=== PATIENT | male | born 1960 | race Caucasian/White ===

== ENCOUNTER 2016-08-27 23:41 | Inpatient (IN) | payer MEDICARE ==
[~2016-08-27] VITALS: Ht 170.2 cm; Wt 57.2 kg
--- NOTE | 2016-08-27 23:41 | NUR ---
TO BED 6 BIB PARAMEDICS C/O SOB, RHONCHI HEARD BILATERALLY ON AUSCULTATION. PT AAOX4. SKIN COOL, DIAPHORETIC. PLACE PT ON CARDIAC MONITORING, CONTINUOUS POX, O2@15L/NONREBREATHER MASK. STARTED SL 18G TO L WRIST, BLOOD DRAWN AND SENT TO LAB. ER MD AT BEDSIDE TO EVAL PT WITH ORDERS RECEIVED. RT AT BEDSIDE.
[2016-08-28] VITALS (8 sets, daily range): BP systolic 92–131; BP diastolic 47–81
[2016-08-28 00:11] LABS: BASOPHILS % (AUTO) 0.3 % (0.0-2.0); EOSINOPHILS # (AUTO) 0.5 /CMM (0.0-0.7); EOSINOPHILS % (AUTO) 7.2 % (0.0-6.0); HEMATOCRIT 25 % (39-51); HEMOGLOBIN 8.4 g/dL (13.5-17.5); LYMPHOCYTES % (AUTO) 14.1 % (20.0-44.0); MEAN CORPUSCULAR HEMOGLOBIN 32 PG (26.0-33.0); MEAN CORPUSCULAR HGB CONC 33 g/dl (31.0-36.0); MEAN CORPUSCULAR VOLUME 95 fL (80-96); MONOCYTES # (AUTO) 0.2 /CMM (0.1-1.30); MONOCYTES % (AUTO) 2.9 % (2.0-12.0); NEUTROPHILS # (AUTO) 5.5 /CMM (1.8-8.9); NEUTROPHILS % (AUTO) 75.5 % (43.0-81.0); PLATELET COUNT (AUTO) 290 /CMM (150-450); RED BLOOD CELL COUNT(AUTO) 2.67 MIL/uL (4.5-6.0); WHITE BLOOD COUNT (AUTO) 7.3 K/uL (4.3-11.0)
[2016-08-28 00:21] LABS: CARBON DIOXIDE 35 mmol/L (21-32); CHLORIDE 94 mmol/L (98-107); CREATININE 1.8 mg/dL (0.6-1.3); GLUCOSE 163 mg/dL (74-106); POTASSIUM 3.6 mmol/L (3.5-5.1); SODIUM SERUM 133 mmol/L (136-145); UREA NITROGEN, BLOOD 22 mg/dL (7-18)
[2016-08-28 00:24] LABS: ABG BASE EXCESS 6.9 mmol/L; ABG OXYGEN SATURATION 91.3 % (92.0-98.5); ABG PCO2 55.1 mmHg (35.0-45.0); ABG PH 7.393 (7.350-7.450); ABG PO2 62.8 mmHg (75.0-100.0); AaDO2 449.8 mmHg; COHb 2.5 % (0.5-1.5); MetHb 0.2 % (0.0-1.5); O2Hb 88.8 % (94.0-97.0); SITE, ABG Right Radial; VENT MODE, BG N/B
[2016-08-28 00:25] LABS: INR 1.23 (0.87-1.13); PROTHROMBIN TIME 13.3 SECS (9.5-12.7)
[2016-08-28 00:29] LABS: TROPONIN I < 0.017 ng/mL (0.00-0.056)
[2016-08-28 00:34] LABS: ALANINE AMINOTRANSFERASE 86 U/L (12-78); ALKALINE PHOSPHATASE 339 U/L (46-116); ASPARTATE AMINOTRANSFERASE 110 U/L (15-37); B-TYPE NATRIURETIC PEPTIDE 20409 PG/ML (0-125); BILIRUBIN,DIRECT 0.5 mg/dL (0.0-0.2); BILIRUBIN,TOTAL 1.1 mg/dL (0.2-1.0); TOTAL PROTEIN, SERUM 6.5 g/dL (6.4-8.2)
--- NOTE | 2016-08-28 00:53 | NUR ---
PLACE PT ON SIMPLE MASK 6L PER ER MD ORDER.
--- NOTE | 2016-08-28 01:21 | NUR ---
PANEL PAGED PER ER MD ORDER.
--- NOTE | 2016-08-28 01:33 | NUR ---
REPORT CALLED TO MACHINE HEEL SEAT FITTER JEM. PENDING HOSPITAL ADMISSION.
--- NOTE | 2016-08-28 01:52 | NUR ---
ER SPOKE TO DR. GONZALEZ REGARDING PT ADMISSION.
[2016-08-28] MEDS ORDERED: IV SET PRIMARY PUMP SET 1 EA INFUS.SET MC ONE (02:04)
[2016-08-28] MEDS ORDERED: AZTREONAM 1 G VIAL ONE (02:04)
[2016-08-28] MEDS: AZTREONAM 1 G in IV NS 0.9% 100 ML IV SCH ×2 (02:10→05:00)
[2016-08-28] MEDS: LEVOFLOXACIN 750 MG /D5W 150ML 750 MG in PREMIX 1 EA IV SCH ×2 (02:26→05:08)
--- NOTE | 2016-08-28 02:27 | NUR ---
REPORT UPDATED TO HOOP COILER JEM. LEVAQUIN 750MG IVPB ENDORSED TO HOOP COILER JEM. WILL TRNASPORT PT VIA ACLS PROTOCOL.
--- NOTE | 2016-08-28 02:40 | NUR ---
ADMISSION NOTES: RECEIVED REPORT FROM ED MAINTENANCE WORKER SWIMMING POOL, PT FROM [facility] BROUGHT TO THE UNIT VIA GURNEY, NO PAPER WORKS FROM [place] ASIDE FROM POLST AND PAY SHEET. PT IS PORTUGUESE SPEAKING A/O 2-3, HAS RIGHT CW JAMSHID CATHETER, RIGHT GROIN TRIPLE LUMEN CATHETER, RIGHT CHEST WALL PLEUREX DRAINAGE CATHETER COVERED WITH DRESSING. NO LEAKAGE NOTED. PT HAS LEFT WRIST IV G18 RUNNING WITH AZACTAM AT 100ML/HR, NOTED LEFT AKA. FAMILY AT BED SIDE, PT REQUESTING DNR, DNI, CHECKED BLOOD SUGAR REVEAL 177, PT REFUSING INSULIN COVERAGE, PT HAS GTUBE IN PLACED, ABDOMEN SOFT TO TOUCH WITH HYPOACTIVE BOWEL SOUND NOTED, GTUBE PATENT AND FLUSHING WELL, COVERED WITH 4X4 GAUZE. PLACED ON TELE MONITOR AND SHOWS SINUS RHYTHM HR 91. SAFETY PRECAUTIONS FOR FALL INITIATED CALL LIGHT IN REACH, WILL CONTINUE TO MONITOR
[2016-08-28] MEDS ORDERED: MAGNESIUM HYDROXIDE 30 ML UDC PO PRN (03:00)
[2016-08-28] MEDS ORDERED: ZOLPIDEM TARTRATE 5 MG TABLET PO PRN (03:00)
[2016-08-28] MEDS ORDERED: Z GUARD REMEDY 2 OZ OINT TP PRN (03:00)
[2016-08-28] MEDS ORDERED: MAG HYDROX/AL HYDROX/SIMETH 30 ML UDC PO PRN (03:00)
--- NOTE | 2016-08-28 03:00 | NUR ---
SKIN ASSESSMENT: PERFORMED BODY CHECK, ALL PICTURES TAKEN ATTACHED TO CHART, INVENTORY OF BELONGINGS COMPLETED BY GROUNDWATER MONITORING TECHNICIAN MARINA
--- NOTE | 2016-08-28 03:30 | NUR ---
RN NOTES: PT HAS RIGHT CHEST WALL PLEUREX DRAINAGE CATHETER WITH DRESSING IN PLACED, PER ESTATE TAX EXAMINER TASHA DO NOT OPEN THE DRESSING, WILL ASK FOR CLEARANCE FROM MD TO OPEN IT THEN TAKE PICTURE, POSSIBLE PULMO CONSULT FIRST, EVEN INFORMATION OFFICER ED NOT AWARE ABOUT PT HAVING PLEUREX CATHETER
--- NOTE | 2016-08-28 03:31 | NUR ---
RN NOTES: PER FAMILY, PT HAD DIALYSIS LAST TUESDAY BUT NOT SURE ABOUT HOW MUCH WERE REMOVED,
[2016-08-28] MEDS ORDERED: LEVOFLOXACIN 750 MG /D5W 150ML 150 ML IV ONE (04:02)
--- NOTE | 2016-08-28 04:02 | NUR ---
rn notes: contacted valentino ruano at [phone] talked to aleksander supervisor lace tearing at night of jim [facility], relayed about paperworks from facility, as pt javier to the unit only with polst and admission/pay sheet. per gregory armijo he will faxed all the medication of the pt and immunization status, also asked per aleksander, pt has pleurex catheter drain which was drained yesterday at 1530 08/27/16 with 750 cc out, he added that dr thakkar order to drain it on 08/1616 then every 2weeks
[2016-08-28] MEDS ORDERED: ALBU1.257 NEB (05:04)
[2016-08-28] MEDS ORDERED: EPOE1VIA7 SQ (05:04)
[2016-08-28] MEDS ORDERED: [UNRECOGNIZED DRUG - CODE] MC (05:04)
[2016-08-28] MEDS ORDERED: LEVO25TA7 GT (05:04)
[2016-08-28] MEDS ORDERED: ACET-73 GT (05:04)
[2016-08-28] MEDS ORDERED: ERYTHROMYCIN GT (05:04)
[2016-08-28] MEDS ORDERED: [UNRECOGNIZED DRUG - MIXTURE] (05:04)
[2016-08-28] MEDS ORDERED: CLON0.1T GT (05:04)
[2016-08-28] MEDS ORDERED: LOPE2TAB57 GT (05:04)
[2016-08-28] MEDS ORDERED: LORA10TA7 GT (05:04)
[2016-08-28] MEDS ORDERED: NITR0.4T6 SL (05:04)
[2016-08-28] MEDS ORDERED: ASCO250T7 GT (05:04)
[2016-08-28] MEDS ORDERED: APIX2.5T GT (05:04)
[2016-08-28] MEDS ORDERED: VIT1TABL46 GT (05:04)
[2016-08-28] MEDS ORDERED: TRAM50TA2 GT (05:04)
[2016-08-28] MEDS ORDERED: PANT40TA4 GT (05:04)
[2016-08-28] MEDS ORDERED: *INS NOVA SQ (05:04)
[2016-08-28] MEDS ORDERED: FERR-58 GT (05:04)
[2016-08-28] MEDS ORDERED: METO-295 GT (05:04)
[2016-08-28] MEDS ORDERED: PROT946L GT (05:04)
[2016-08-28] MEDS ORDERED: IPRATROPIUM BROMIDE INH (05:04)
--- NOTE | 2016-08-28 05:11 | NUR ---
levaquin: levaquin override by rn gregory griffith, levofloxacin administered at this time, unable to hang the medication earlier at 0200am as pt came to the unit at 0245am, with ongoing azactam at 100ml/hr, upon completion of azactam, erisa attorney from er put non admin for levaquin, had to call the said rn couple of times to remove the non admin so rn at [facility] can administer the said medication,
--- NOTE | 2016-08-28 05:12 | NUR ---
azactam: azactam not administered at this time, there is one schedule for 0520am however azactam just administered at 0200am in er, order is for q8hr
--- NOTE | 2016-08-28 05:16 | NUR ---
MEDICATION LIST: ALL MEDICATION FAXED BY MATTHEW, ENCODED IN THE COMPUTER, WILL INFORM MD COURT ORDERLY
--- NOTE | 2016-08-28 05:20 | NUR ---
RN NOTES: TALKED TO DR GONZALEZ REGARDING PT'S DIET INFORMED PT HAS GTUBE, PER OKAY TO USE GTUBE, ALSO INFORMED ABOUT ALL HOME MEDICATION ENCODED IN THE COMPUTER, ALSO MADE MD AWARE REGARDING PT'S PLUEREX CATHETER DRAINAGE, AND THAT PT DIABETIC IF HE WANTS ANY ACCUCHECK AND COVERAGE, STATED OKAY HE WILL TAKE A LOOK AND PUT IN ORDERS, ALSO MD INFORMED ABOUT PT'S POLST WITH DNR DNI PT WANTS TO KEEP IT THAT WAY, PER OKAY, JUST PUT THE ORDER, RELAYED TO TROUBLE SHOOTERINRANJAN CORDOVA
--- NOTE | 2016-08-28 05:25 | NUR ---
RN NOTES: PER MD BAILEY TO USE GTUBE FOR MEDICATIONS, WILL HAVE DIETARY CONSULT REGARDING TUBE FEEDING OF THE PT
[2016-08-28] MEDS ORDERED: DEXTROSE 50%-WATER 50 ML DISP.SYRIN IV PRN ×2 (05:30→13:00)
[2016-08-28] MEDS ORDERED: INSULIN REGULAR, HUMAN 100 UNIT/ML 3 ML VIAL SQ PRN (05:30)
[2016-08-28] MEDS ORDERED: BLOOD SUGAR DIAGNOSTIC 1 EACH STRIP IN SCH (06:00)
--- NOTE | 2016-08-28 06:17 | NUR ---
BLOOD SUGAR PT BLOOD GLUCOSE WAS 181, PT REFUSED INSULIN. WILL CONTINUE TO MONITOR FOR SIGNS OF HYPO/HYPER GLYCEMIA
--- NOTE | 2016-08-28 06:50 | NUR ---
DOCKETING SPECIALIST CLOSING NOTES: PT IN BED, AWAKE, A/O X2, NO SOB NOTED, GTUBE REMAINS CLAMPED, REMAINS SINUS RHYTHM HR 90, AWAITING DIETARY CONSULT FOR GTUBE FEEDING, SAFETY PRECAUTIONS FOR FALL REMAINS ENGAGED CALL LIGHT IN REACH WILL CONTINUE TO MONITOR
--- NOTE | 2016-08-28 07:30 | NUR ---
RECEIVED PT. ALERT AND ORIENTED X2-3,ESTONIAN SPEAKING,ON O2,SIDE RAILS UP.VS STABLE.NO COMPLAINTS.G-TUBE IN PLACE NEED ORDERS.
[2016-08-28] MEDS ORDERED: CLONIDINE HCL 0.1 MG TABLET GT PRN (08:00)
[2016-08-28] MEDS ORDERED: EPOETIN ALFA (10,000 UNIT) 10,000 UNIT/ML VIAL IJ SCH (08:00)
--- NOTE | 2016-08-28 08:00 | NUR ---
RT. CHEST PLEUREX CATH INTACT,COVERED BY DRESSING.
[2016-08-28] MEDS: HYDROCODONE/APAP 5/325MG 1 EACH TABLET PO PRN ×3 (08:28→23:48)
[2016-08-28] MEDS: PANTOPRAZOLE 40 MG TABLET.DR PO SCH ×2 (08:30→10:27)
[2016-08-28] MEDS ORDERED: PANTOPRAZOLE 40 MG TABLET.DR PO SCH (09:00)
[2016-08-28] MEDS ORDERED: LOPERAMIDE HCL UDC(2 MG/10 ML) 2 MG/10 ML UDC GT PRN (10:00)
[2016-08-28] MEDS ORDERED: ASCORBIC ACID 250 MG TABLET PO SCH (10:00)
[2016-08-28] MEDS ORDERED: RENAL NOVASOURCE 1,000 ML BOTTLE GT SCH ×2 (10:00→12:26)
[2016-08-28] MEDS: ASCORBIC ACID 500 MG TABLET PO SCH (10:27)
[2016-08-28] MEDS: FUROSEMIDE 40 MG/4 ML VIAL IV SCH ×2 (10:27→17:32)
[2016-08-28] MEDS: FERROUS SULFATE (325 MG) 325 MG/TAB TABLET GT SCH ×2 (10:28→17:32)
[2016-08-28] MEDS: LEVOTHYROXINE SODIUM 25 MCG TABLET GT SCH (10:29)
[2016-08-28] MEDS: LORATADINE 10 MG TABLET PO SCH (10:31)
--- NOTE | 2016-08-28 11:30 | NUR ---
DR. FERRELL AND DR. WINSTON IN TO SEE PT.
[2016-08-28] MEDS ORDERED: BLOOD SUGAR DIAGNOSTIC 1 EACH STRIP MC SCH (12:00)
--- NOTE | 2016-08-28 12:30 | NUR ---
FAMILY IN TO VISIT.
[2016-08-28] MEDS ORDERED: AMLO5TAB2 GT (12:32)
[2016-08-28] MEDS ORDERED: ERYT-113 GT (12:32)
[2016-08-28] MEDS ORDERED: IPRA0.2S9 IH (12:32)
[2016-08-28] MEDS ORDERED: NUTR100037 GT (12:32)
[2016-08-28] MEDS ORDERED: METOCLOPRAMIDE HCL 10 MG TABLET GT PRN (13:00)
--- NOTE | 2016-08-28 13:00 | NUR ---
PT. REQUESTED ICE CHIPS-WITH OK OF CHRG.RN GIVEN SM SIPS OF WATER WITH FEW ICE CHIPS.
[2016-08-28] MEDS: IPRATROPIUM NEB FS 0.5 MG/2.5 ML AMPUL.NEB NEB SCH ×2 (13:10→19:30)
[2016-08-28] MEDS: ALBUTEROL HALF STRENGTH 1.25 MG/3 ML VIAL.NEB NEB SCH ×2 (13:10→19:30)
--- NOTE | 2016-08-28 13:15 | NUR ---
PT. RECEIVING TSP OF WATER AT A TIME.NO COUGHING NOTED.
[2016-08-28] MEDS ORDERED: IPRATROPIUM NEB FS 0.5 MG/2.5 ML AMPUL.NEB NEB PRN (13:30)
[2016-08-28] MEDS ORDERED: EPOETIN ALFA (10,000 UNIT) 10,000 UNIT/ML VIAL IV ONE (14:00)
--- NOTE | 2016-08-28 14:30 | NUR ---
REQUESTING WATER OFTEN-RN IN TO RM. EDGE.FOUND PT. WITH CUP OF WATER.APPARENTLY GIVEN TO HIM BY ROOMATE SM.CUP WATER PLACED FAR AWAY FROM PT.
[2016-08-28] MEDS: ERYTHROMYCIN ETHYLSUCCINATE 200 MG/5 ML SUSPENSION GT SCH ×3 (16:08→21:49)
[2016-08-28] MEDS: APIXABAN 2.5 MG TABLET GT SCH ×2 (16:09→17:00)
[2016-08-28] MEDS: HYDROGEL DRESSING 90 GM TUBE TP SCH (16:10)
--- NOTE | 2016-08-28 16:30 | NUR ---
DIALYSIS TODAY 1.2 L REMOVED.
[2016-08-28] MEDS ORDERED: PROSOURCE / PROSTAT (PYXIS) 30 ML UDC PO PRN (17:00)
[2016-08-28] MEDS: BLOOD SUGAR DIAGNOSTIC 1 EACH STRIP IN SCH (17:30)
--- NOTE | 2016-08-28 18:00 | NUR ---
TOLERATING WATER TOTAL THIS SHIFT.150 ML.G-TUBE INFUSING WELL.
--- NOTE | 2016-08-28 19:35 | NUR ---
RN INITIAL NOTES: RECEIVED REPORT FROM SHAREE Andrade PT IN BED AWAKE, A/O 2 ROMANSH SPEAKING , ASKING FOR WATER, BUT PT ON NPO ONLY GTUBE FEEDING, RECEIVING NOVASOURCE AT 40CC/HR. PT ON 2L VIA NC, NO SOB NOTED AT THIS TIME. PT S/P HD TODAY WITH 1.2 L OUTPUT, HAS RIGHT CW JAMSHID CATHETER, DRESSING C/D/I, PT HAS RIGHT GROIN TRIPLE LUMEN CATHETER IN PLACED WHICH ACCORDING TO DAY RN WAS FIXED BY MARINA ARCHULETA PICC LINE THIS AFTERNOON, AND NOW FUNCTIONAL AND OKAY TO USE PER MD, SHE STATED SHE WILL PUT AN ORDER SHE WAS THE ONE WHO COMMUNICATE WITH THE DOCTOR ABOUT IT. PT ALSO HAVE RIGHT CW PLEURX DRAIN CATHETER, WITH DRESSING C/D/I, COVERED WITH TEGADERM. ORDER IS TO DRAIN Q48HR WHICH IS DUE ON 08/29/16 AT 0900AM PER DAY RN, STATED IT WAS ACCDG TO DR DEL REAL. PT S/P PLEURX DRAIN ON 08/27/16 AT [place] [facility] WITH 750 CC OUTPUT. SAFETY PRECAUTIONS FOR FALL INITIATED CALL LIGHT IN REACH WILL CONTINUE TO MONITOR
--- NOTE | 2016-08-28 19:45 | NUR ---
NET C DEVELOPER: 1944-- FOUND PT PALE LOOKING, SHORT OF BREATH, AWAKE, BUT NOT RESPONDING WHEN ASK QUESTIONS OR INFLICT LOCAL PAIN, PT WITH PULSE, VS TAKEN AND RECORDED, 92/47 RR 16 SPO2 57% ON 2L VIA NC, 98.2, INFORMED DRAIN CLEANER PLUMBERNIRANJAN CORDOVA, NET C DEVELOPER WAS CALLED, PLACED PT ON MONITOR 1946-- CHECKED BLOOD SUGAR REVEALS 156, PLACED PT ON 6L STILL SHOWING 67% SATURATION, NET C DEVELOPER TEAM CAME, TELEPHONE STATION REPAIRER YISSEL AND RESPIRATORY THERAPIST, ANDREA , PLACED PT ON 15L/MIN NON REBREATHER MASK, SAT WENT TO 90%, GIVE REPORT/SBAR TO TELEPHONE STATION REPAIRER AND REST OF TEAM REGARDING PT'S CONDITION AND HISTORY, AND MADE AWARE PT DNR/DNI 1949--RN ARIANE THOMAS CAME, REST OF RT INCLUDING ARLENE, DID STAT ABG, PER TELEPHONE STATION REPAIRER YISSEL TO WAIT FOR THE RESULT BEFORE CALLING DR DEL REAL, VS 99/60, HR 111, 99% ON NON REBREATHER MASK, RR 20 98.2, PT AWAKE NOW, A/O X2 UZBEK ONLY 1999-- RESULT OF ABG CAME BACK , WHICH SHOWS ABNORMAL RESULT, PER TELEPHONE STATION REPAIRER YISSEL PT WOULD NEED BIPAP AND TRANSFER TO [facility], CALLED DR DEL REAL BUT NOT ANSWERING THE CALL, INFORMED DRAIN CLEANER PLUMBER LUANA, CONTACTED DR GONZALEZ RELAYED ABOUT PT'S CONDITION AND RESULT OF ABG'S, PER MD TO TRANSFER PT TO [facility] PLACED ON BIPAP DO STAT CXR AND CALL HIM FOR THE RESULT, VS TAKEN 90/51 HR 112 RR 19, SPO2 98% 2004-- CXR TECH CAME TO DO CXR 2005-- GIVEN REPORT TO VIOLETA CAMPOS RN, PT WILL BE GOING TO ROOM 113-2029-- TRANSFERRED PT TO [facility] VIA ACLS PROTOCOL, 2047--CONTACTED FAMILY OF THE PT, MAGNOLIA PT'S DAUGHTER MADE AWARE OF THE NEED FOR TRANSFER,
[2016-08-28 20:03] LABS: ABG BASE EXCESS 3.7 mmol/L; ABG OXYGEN SATURATION 91.3 % (92.0-98.5); ABG PCO2 69.3 mmHg (35.0-45.0); ABG PH 7.274 (7.350-7.450); ABG PO2 71.1 mmHg (75.0-100.0); COHb 3.2 % (0.5-1.5); MetHb 0.9 % (0.0-1.5); O2Hb 87.6 % (94.0-97.0); SITE, ABG Right Brachial; VENT MODE, BG N/B
--- NOTE | 2016-08-28 20:28 | NUR ---
TREATMENT NOT GIVEN TO THE PT BECAUSE OF PT FALL IN RAPID RESPOND AND THEN HE TRANSFERRED TO [facility] 113
--- NOTE | 2016-08-28 20:34 | NUR ---
STRUCTURAL SHOP HELPER NOTES RECEIVE REPORT FROM BLAINE. WAITING FOR PT
--- NOTE | 2016-08-28 20:40 | NUR ---
TRANSFER NOTES: TRANSFERRED PT TO [facility] VIA ACLS PROTOCOL AT 2030, RN VIOLETA AND EXECUTIVE LEGAL SECRETARY AIDEN PRESENT, FAMILY FRIEND AT BED SIDE, PT A/O X2, GTUBE FEEDING CLAMPED, VS STABLE, PT HAS NO BELONGINGS, REPORT GIVEN TO KATHE MCDANIEL, ENDORSED PT FOR CONTINUITY OF CARE
--- NOTE | 2016-08-28 20:40 | NUR ---
RN NOTES RECEIVED PT TRANSF[facility], ON NON REBREATHER MASK 15 LPM, AWAKE, FAMILY AT BEDSIDE. V/S TAKEN AND BODY CHECKED DONE. GT CLAMPED. WILL CONTINUE TO MONITOR PATIENT RESPIRATORY EFFORT, SATURATION.
--- NOTE | 2016-08-28 20:48 | NUR ---
RN NOTES: CONTACTED FAMILY MEMBER, PT'S DAUGHTER MAGNOLIA COLLADO, AT [phone], INFORMED ABOUT PT CONDITION AND THE REASON FOR TRANSFER, PT FAMILY FRIEND ALSO AT BED SIDE DURING THE WHOLE CUSHION PADDER AND TRANSFER OF PT,
--- NOTE | 2016-08-28 21:27 | NUR ---
medications: all pt's medication in the cassette including eliquis, eryhtromycin, insulin and feeding given to niranjan davenport
--- NOTE | 2016-08-28 21:35 | NUR ---
RN NOTES NOTED PT WITH SATURATION 83-87% ON NON REBREATHER, 2125 PT WAS PUT ON BIPAP, RT AT BEDSIDE. SPOKE WITH DR GONZALEZ TO INFORM HIM OF THE CHEST XRAY RESULT AND FOR ANY FURTHER ORDERS.
--- NOTE | 2016-08-28 21:59 | NUR ---
ALL [facility] CLEARED FOR PT SAFETY
[2016-08-29] VITALS: BP 113/52
[2016-08-29] MEDS: BLOOD SUGAR DIAGNOSTIC 1 EACH STRIP IN SCH ×5 (00:19→23:21)
[2016-08-29] MEDS: IPRATROPIUM NEB FS 0.5 MG/2.5 ML AMPUL.NEB NEB SCH ×6 (02:08→19:44)
[2016-08-29] MEDS: ALBUTEROL HALF STRENGTH 1.25 MG/3 ML VIAL.NEB NEB SCH ×4 (02:08→19:44)
[2016-08-29 04:00] VITALS: BP 141/76
--- NOTE | 2016-08-29 06:28 | NUR ---
RN NOTES PT STATED " I WANT TO , I DON'T WANT THIS" AND REFUSED INSULIN COVERAGE FOR 0600. ORDERED KEY ACCOUNT EXECUTIVE CONSULT AND PT SCORED 5 ON READMISSION SCREENING. Addendum: 08/29/16 at 0649 by VIOLETA GARCIA RN CALLED THE DAUGHTER, MAGNOLIA TO [facility] TO HAVE A MEETING WITH THE PT AND KEY ACCOUNT EXECUTIVE. STAYED WITH THE PATIENT, MADE SURE ALL SAFETY MEASURES ARE MAINTAINED. PROVIDED SAFETY AND SUPPORT.
--- NOTE | 2016-08-29 07:27 | NUR ---
SEXTON HELPER CLOSING NOTES PT IS STILL ON BIPAP, AND SATURATING 100%, NO RESPIRATORY DISTRESS NOTED, ENDORSED TO THE AM NURSE REGARDING THE PATIENT REFUSING TREATMENTS, FAMILY WAS INFORMED. ALL SAFETY MEASURES IMPLEMENTED.
--- NOTE | 2016-08-29 08:16 | NUR ---
patient noted laying in bed on bipap,oxygen saturation is at 100% .endorsement given by shift superintendent nurse that patient voiced that he wants to kill himself.metalizing supervisor as well as charge nurse informed .safety measures implemented.patients family arrived.patient is being monitored at this time by family as efforts are being made by charge nurse to secure a sitter. md awaiting call back at this time
--- NOTE | 2016-08-29 08:54 | NUR ---
TD/RN BEHAVIORAL HEALTH CALLED EXT [phone], NOTIFIED OF PT'S VERBALIZED WANTING TO KILL HIMSELF. MD AND NURSE DIRECTOR IT PROJECT AWARE.
[2016-08-29] MEDS: HYDROGEL DRESSING 90 GM TUBE TP SCH (09:00)
[2016-08-29] MEDS: APIXABAN 2.5 MG TABLET GT SCH ×2 (09:00→17:51)
--- NOTE | 2016-08-29 09:41 | NUR ---
TD/KEY RINGERINSTRUCTIONAL TECHNOLOGY INSTRUCTOR PER PROTOCOL CALLED STACEY PRASAD @ [phone]. NOTIFIED HER OF PT'S WANTING TO KILL HIMSELF LAST NIGHT. PER CLINICIAN SHE ONLY GETS INVOLVE WHEN PT VERBALIZED WANTING TO LEAVE THE HOSPITAL, UNTIL THEN TO NOTIFY PRIMARY MD.
--- NOTE | 2016-08-29 09:58 | NUR ---
TD/RN NOTIFIED PRIMARY SPOKE TO FIELD ACCOUNT DIRECTOR JAKE, NOTIFYING HIM THAT LAST NIGHT PT VERBALIZED WANTING TO KILL HIMSELF, I ALSO NOTIFIED HIM THAT I NURSE MAIL HANDLERS SUPERVISOR IS AWARE, ALSO CALLED BOTH THE ORDER ENTRY CLERK AND BEHAVIORAL HEALTH DEPARTMENT (SPOKE TO OTONIEL). PER FIELD ACCOUNT DIRECTOR HE WILL SEE THE PT. NO NEW ORDERS RECEIVED AT THIS TIME.
[2016-08-29] MEDS: LORATADINE 10 MG TABLET PO SCH (11:18)
[2016-08-29] MEDS: LEVOTHYROXINE SODIUM 25 MCG TABLET GT SCH (11:18)
[2016-08-29] MEDS: FERROUS SULFATE (325 MG) 325 MG/TAB TABLET GT SCH ×2 (11:18→17:51)
[2016-08-29] MEDS: FUROSEMIDE 40 MG/4 ML VIAL IV SCH ×2 (11:18→17:00)
[2016-08-29] MEDS: ERYTHROMYCIN ETHYLSUCCINATE 200 MG/5 ML SUSPENSION GT SCH ×4 (11:19→20:30)
[2016-08-29 12:00] VITALS: BP 122/81
[2016-08-29 12:05] VITALS: BP 122/81
--- NOTE | 2016-08-29 13:59 | NUR ---
duplicate order noted for atrovent.only one dose given by rt
[2016-08-29] MEDS: INSULIN REGULAR, HUMAN 100 UNIT/ML 3 ML VIAL SQ PRN ×2 (14:09→23:22)
[2016-08-29 17:13] VITALS: BP 96/56
--- NOTE | 2016-08-29 19:35 | NUR ---
TELE TD NOTE RECEIVED PATIENT FROM DAY SHIFT, PATIENT IS ALERT AND ORIENTEDX2, NO S/S OF RESPIRATORY DISTRESS NOTED AT THIS TIME, NC 4L/MIN PRESENT. RIGHT GROIN CATH, RIGHT CW PERMACATH, RIGHT SIDE CHEST PLEURX DRAINAGE SITE COVERED WITH DRESSING PRESENT. FAMILY AT BED SIDE FOR BEHAVIOR OBSERVATION, PATIENT IS SUICIDAL, HAS PLANS, WILL CONTINUE TO MONITOR ACCORDINGLY. TELE SR 95. SRX2, BED IN LOW POSITION, CALL LIGHT WITHIN REACH, WILL CONTINUE TO MONITOR PATIENT.
[2016-08-29] MEDS: ACETAMINOPHEN 325 MG TABLET PO PRN (19:45)
[2016-08-29 20:00] VITALS: BP 135/80
[2016-08-30] VITALS: BP 116/71
--- NOTE | 2016-08-30 01:00 | NUR ---
TELE TD F/U WITH NURSING SUP REGARDING PATIENT'S PLEURX DRAINAGE KIT, NOT AVAILABLE, WILL ENDORSE TO DAY SHIFT TO F/U WITH CENTRAL SUPPLY.
[2016-08-30] MEDS: ACETAMINOPHEN 325 MG TABLET PO PRN ×4 (01:30→23:51)
[2016-08-30] MEDS: ALBUTEROL HALF STRENGTH 1.25 MG/3 ML VIAL.NEB NEB SCH ×4 (01:32→20:23)
[2016-08-30] MEDS: IPRATROPIUM NEB FS 0.5 MG/2.5 ML AMPUL.NEB NEB SCH ×7 (01:32→20:23)
[2016-08-30 04:00] VITALS: BP 106/70
[2016-08-30] MEDS: BLOOD SUGAR DIAGNOSTIC 1 EACH STRIP IN SCH ×4 (05:40→23:53)
--- NOTE | 2016-08-30 06:41 | NUR ---
TELE TD PATIENT IS RESTING IN BED, NO S/S OF RESPIRATORY DISTRESS, O2 SAT REMAINS STABLE, PATIENT REFUSED TO TAKE PICTURES, RECENT PHOTOS TAKEN ON 08/28 299. COMPLAINS OF PAIN ON HIS STOMACH, BUT TYLENOL IS NOT DUE YET, WILL ENDORSE TO DAY SHIFT FOR DENISE.
[2016-08-30 06:57] LABS: BASOPHILS % (AUTO) 0.2 % (0.0-2.0); EOSINOPHILS % (AUTO) 0.4 % (0.0-6.0); HEMATOCRIT 22 % (39-51); HEMOGLOBIN 7.2 g/dL (13.5-17.5); LYMPHOCYTES # (AUTO) 0.8 /CMM (0.8-4.8); LYMPHOCYTES % (AUTO) 6.4 % (20.0-44.0); MEAN CORPUSCULAR HEMOGLOBIN 32 PG (26.0-33.0); MEAN CORPUSCULAR HGB CONC 33 g/dl (31.0-36.0); MEAN CORPUSCULAR VOLUME 96 fL (80-96); MONOCYTES # (AUTO) 0.4 /CMM (0.1-1.30); MONOCYTES % (AUTO) 3.1 % (2.0-12.0); NEUTROPHILS # (AUTO) 10.8 /CMM (1.8-8.9); NEUTROPHILS % (AUTO) 89.9 % (43.0-81.0); PLATELET COUNT (AUTO) 274 /CMM (150-450); RDW COEFFICIENT OF VARIATION 22.7 (11.5-15.0); RED BLOOD CELL COUNT(AUTO) 2.27 MIL/uL (4.5-6.0); WHITE BLOOD COUNT (AUTO) 12.1 K/uL (4.3-11.0)
[2016-08-30 08:00] VITALS: BP 139/69
[2016-08-30] MEDS: LEVOTHYROXINE SODIUM 25 MCG TABLET GT SCH (08:03)
[2016-08-30] MEDS: FERROUS SULFATE (325 MG) 325 MG/TAB TABLET GT SCH ×2 (08:03→17:53)
[2016-08-30] MEDS: LORATADINE 10 MG TABLET PO SCH (08:03)
[2016-08-30] MEDS: PANTOPRAZOLE 40 MG TABLET.DR PO SCH (08:03)
[2016-08-30] MEDS: FUROSEMIDE 40 MG/4 ML VIAL IV SCH ×2 (08:04→17:00)
[2016-08-30] MEDS: ASCORBIC ACID 500 MG TABLET PO SCH (08:04)
[2016-08-30] MEDS: ERYTHROMYCIN ETHYLSUCCINATE 200 MG/5 ML SUSPENSION GT SCH (08:13)
[2016-08-30] MEDS: APIXABAN 2.5 MG TABLET GT SCH ×2 (08:13→17:54)
[2016-08-30] MEDS: HYDROGEL DRESSING 90 GM TUBE TP SCH (08:13)
--- NOTE | 2016-08-30 10:22 | NUR ---
WOUND CARE CONSULT: PT PRESENTS WITH MULTIPLE WOUNDS PRESENT ON ADMISSION INCLUDING SACRAL STAGE III ULCER, RT KNEE WOUND AND RT FOOT NECROTIC ULCER. PT HAS LEFT AKA STUMP. PLEUREX DRAIN NOTED TO RT CHEST. DEFER TO MD FOR PLEUREX. RECOMMEND SURGICAL CONSULT FOR WOUNDS. RECOMMEND LOW AIRLOSS MATTRESS. FIRST STEP ORDERED. ALL SKIN AND WOUND RECOMMENDATIONS DISCUSSED WITH NURSING STAFF. MD IN AGREEMENT WITH PLAN OF CARE. Addendum: 08/30/16 at 1024 by MARIO ALBERTO LOPEZ WNDNU Amended: Links added.
[2016-08-30 12:00] VITALS: BP 132/77
[2016-08-30] MEDS ORDERED: EPOETIN ALFA (10,000 UNIT) 10,000 UNIT/ML VIAL IV ONE (12:00)
--- NOTE | 2016-08-30 12:33 | NUR ---
Social service consult requested by DR. Hedrick due to pt. stating "I want to ". Pt. is a 56 year old male who was hospitalized at [facility] for Chronic heart failure. SW met with pt. bedside. Pt. is alert and oriented x4. Pt. had friends visiting him bedside. Pt. informed SW he wants to go back home to his apartment upon discharge and not to [facility]. Pt. states he lives alone in his apartment. When SW inquired with pt. if he has any assistance at home, pt. states," sometimes my friend comes to help me, otherwise I manage on my own". Pt. stated he wants to because he wants to stop the dialysis. Pt. states he has been chronically sick for the past eight years and is tired of it. Pt. and family (daughter) discussed with the doctor and pt's daughter is aware of her father's wishes which include no aggressive measure and the patient also wants " no dialysis". The decision will be made today with family and physician present. PARIS Liriano informed VASYL no psychiatric consult is required at this time. Pt. is DNR/DNI.
[2016-08-30] MEDS: INSULIN REGULAR, HUMAN 100 UNIT/ML 3 ML VIAL SQ PRN ×3 (12:59→23:58)
--- NOTE | 2016-08-30 14:27 | NUR ---
Heri Salter on the unit orders for swallow eval. ST came for eval and he passed with recommendations for Puree Diet, okay with thin liquids, advanced as tolerated. Heri Salter agrees and okays to start him on diet.
[2016-08-30 16:00] VITALS: BP 113/63
[2016-08-30] MEDS ORDERED: SECONDARY IV SET 1 EA INFUS.SET MC ONE (17:46)
[2016-08-30] MEDS: ALBUMIN 25% 25 GM in PREMIX 1 EA IV PRN (17:53)
--- NOTE | 2016-08-30 18:48 | NUR ---
PATIENT ATE 100% PUREED DIET DINNER. ANNA JOSEPH NOTIFIED WITH ORDER TO STOP TUBE FEEDING
--- NOTE | 2016-08-30 19:35 | NUR ---
RN NOTES RECEIVED PT AWAKE ON BED NO ACUTE RESP DISTRESS. AOX3 VERBALIZED NEEDS. ST HR 113, DENIES PAIN AT THIS TIME. IV SITE ON RIGHT FEMORAL WITH TLC INTACT AND PATENT RCW HD CATH CLEANED COVERED WITH DRESSING . RIGHT LATERAL CHEST PLEURX INTACT COVERED WITH DRESSING. NO ACTIVE BLEEDING NOTED. LEFT AKA DRESSING KEPT INTACT AND DRY. KEPT PT CLEAN AND DRY. CALL LIGHT KEPT WITHINE ASY REACH. BED IN LOW AND LOCKED. WILL FREQ. MONITORED.
[2016-08-30 20:00] VITALS: BP 132/72
[2016-08-31] VITALS: BP 127/73
[2016-08-31] MEDS: ALBUTEROL HALF STRENGTH 1.25 MG/3 ML VIAL.NEB NEB SCH ×4 (01:30→20:04)
[2016-08-31] MEDS: IPRATROPIUM NEB FS 0.5 MG/2.5 ML AMPUL.NEB NEB SCH ×4 (01:30→20:04)
[2016-08-31 04:00] VITALS: BP 130/68
[2016-08-31] MEDS: ACETAMINOPHEN 325 MG TABLET PO PRN ×3 (05:39→17:07)
[2016-08-31] MEDS: BLOOD SUGAR DIAGNOSTIC 1 EACH STRIP IN SCH ×4 (05:47→23:45)
--- NOTE | 2016-08-31 06:39 | NUR ---
RN NOTES PT ASLEEP WELL ON BED WOKE UP AND ASKED TO TURNED ON BED MORE OFTEN. NO ACUTE RESP DISTRESS SHOWS. TOLERATED S/P HD AND PLEURAL DRAINAGE FROM YESTERDAY.SATURATION 99%IN O2 4LPMVIA NC. PAIN MEDICINE REMAINED EFFECTIVE. PLEURX INTACT AND COVERED WITH DRESSING. ALL NEEDS ATTENDED. WILL ENDORSED CONTINUITY OF CARE TO AM NURSE.
[2016-08-31] MEDS: PANTOPRAZOLE 40 MG TABLET.DR PO SCH (07:16)
[2016-08-31 08:00] VITALS: BP 113/73
--- NOTE | 2016-08-31 08:00 | NUR ---
TD/RN AM SHIFT INITIAL NOTES RECEIVED PT AWAKE SITTING IN BED. PT A/O X 2-3. DENIES ANY SYMPTOMS AT THIS TIME. NO ACUTE RESPIRATORY DISTRESS NOTED. ON 4L O2 VIA N/C SATURATING @ 96%, WITH DIMINISHED LUNG SOUNDS. ON TELE WITH SINUS RHYTHM, HR 85. CENTRAL LINE FLUSHED, PATENT WITH NO S/S OF INFECTION. PT IS COMFORTABLE AT THIS TIME. SCHEDULED AM MEDS TO BE GIVEN. CL WITHIN REACHED AND SAFETY MAINTAINED. ON GOING MONITORING.
[2016-08-31] MEDS: FUROSEMIDE 40 MG/4 ML VIAL IV SCH ×2 (09:18→17:04)
[2016-08-31] MEDS: HYDROGEL DRESSING 90 GM TUBE TP SCH (09:18)
[2016-08-31] MEDS: LEVOTHYROXINE SODIUM 25 MCG TABLET GT SCH (09:18)
[2016-08-31] MEDS: LORATADINE 10 MG TABLET PO SCH (09:18)
[2016-08-31] MEDS: APIXABAN 2.5 MG TABLET GT SCH ×2 (09:18→17:04)
[2016-08-31] MEDS: FERROUS SULFATE (325 MG) 325 MG/TAB TABLET GT SCH ×2 (09:18→17:04)
[2016-08-31] MEDS: ASCORBIC ACID 500 MG TABLET PO SCH (09:18)
[2016-08-31 12:00] VITALS: BP 134/78
--- NOTE | 2016-08-31 12:00 | NUR ---
TELE1/RN NOON ROUNDS BLOOD GLUCOSE CHECKED, 181. PT REFUSED 3 UNITS OF REGULAR INSULIN COVERAGE. RISKS & BENEFITS EXPLAINED, PT VERBALIZED UNDERSTANDING BUT STILL REFUSED. NO S/S OF HYPERGLYCEMIA. MONITORING MONITORING.
[2016-08-31 16:00] VITALS: BP 139/79
--- NOTE | 2016-08-31 16:00 | NUR ---
TELE1/RN ROUNDS - DRs. KRAMER & CARISA PT SEEN & EXAMINED BY DRs. KRAMER & CARISA. NO NEW ORDERS RECEIVED AT THIS TIME. NO ACUTE CHANGE OF CONDITION. MONITORING CONTINUED.
--- NOTE | 2016-08-31 18:00 | NUR ---
TELE1/RN REFUSED INSULIN COVERAGE BLOOD GLUCOSE CHECKED, 166. PT REFUSED INSULIN COVERAGE. RISKS AND BENEFITS EXPLAINED, PT VERBALIZED UNDERSTANDING, STILL REFUSED. NO S/S OF HYPERGLYCEMIA. MONITORING CONTINUED.
--- NOTE | 2016-08-31 19:16 | NUR ---
TELE1/RN AM SHIFT END NOTES ALL NEEDS MET. NO CHANGE OF CONDITION DURING THE SHIFT. PT ENDORSED TO PM NURSE TO CONTINUE CARE. CL WITHIN REACHED AND SAFETY MAINTAINED.
[2016-08-31 20:00] VITALS: BP 147/80
--- NOTE | 2016-08-31 20:00 | NUR ---
TELE 1 RN NOTE PT IN BED AWAKE. A/O X 2, NO SOB, NO DISTRESS OR DISCOMFORT NOTED. PT C/O PAIN ON LT SIDE OF BODY AND WANTS TO BE REPOSITIONED HIM. AFTER REPOSITION PT STATES "IT'S BETTER NOW". REMAIN ON O2 4L VIA N/C 02 SAT 100%, ON TELE SR HR 83. RT HEEL AND RT KNEE WOUND DRESSING I/C/D. RT FEMORAL TRIPLE LUMEN CATH INTACT AND ALSO RCW WITH HD CATH INTACT WITH DRESSING ON. RT PLURAL DRAINAGE SITE INTACT WITH DRESSING ON. DR SANCHEZ VISITED THE PT AT BED SIDE. SIDE RAILS UP X 2 AND CALL LIGHT WITHIN REACH. VSS. CONTINUE TO MONITOR HIM.
[2016-08-31] MEDS: SERTRALINE HCL 50 MG TABLET PO SCH (21:35)
--- NOTE | 2016-08-31 23:45 | NUR ---
TELE 1 RN NOTE PT REFUSED BLOODSUGAR CHECK, GOT MAD. STATES "LEAVE ME ALONE". NO S/S OF HYPO OR HYPERGLYCEMIA NOTED.
--- NOTE | 2016-09-01 | NUR ---
TELE 1 RN NOTE PT REFUSED VS CHECK
[2016-09-01] MEDS: IPRATROPIUM NEB FS 0.5 MG/2.5 ML AMPUL.NEB NEB SCH ×4 (01:30→19:30)
[2016-09-01] MEDS: ALBUTEROL HALF STRENGTH 1.25 MG/3 ML VIAL.NEB NEB SCH ×4 (01:30→19:30)
[2016-09-01 04:00] VITALS: BP 160/93
[2016-09-01] MEDS: BLOOD SUGAR DIAGNOSTIC 1 EACH STRIP IN SCH ×3 (05:52→17:33)
--- NOTE | 2016-09-01 06:00 | NUR ---
TELE 1 RN NOTE BLOODSUGAR 162, PT REFUSED INSULIN COVERAGE. STATES "I AM OK WITHOUT IT".
--- NOTE | 2016-09-01 07:47 | NUR ---
RN NOTES RECEIVED PT AWAKE WITH NAD. NO COMPLAINTS OF PAIN MADE. RT CHEST WALL HD ACCESS IN PLACE AND SECURED WITH CLEAN DRY DRESSING. GT REMAINS CLAMPED. SAFETY ENSURED . ALL NEEDS ATTENDED.
[2016-09-01 08:00] VITALS: BP 153/91
[2016-09-01 08:12] VITALS: BP 153/91
[2016-09-01] MEDS: FUROSEMIDE 40 MG/4 ML VIAL IV SCH ×2 (08:21→16:47)
[2016-09-01] MEDS: ASCORBIC ACID 500 MG TABLET PO SCH (08:22)
[2016-09-01] MEDS: PANTOPRAZOLE 40 MG TABLET.DR PO SCH (08:22)
[2016-09-01] MEDS: LEVOTHYROXINE SODIUM 25 MCG TABLET GT SCH (08:22)
[2016-09-01] MEDS: LORATADINE 10 MG TABLET PO SCH (08:22)
[2016-09-01] MEDS: ONDANSETRON HCL/PF 4 MG/2 ML VIAL IVP PRN ×2 (08:22→20:05)
[2016-09-01] MEDS: FERROUS SULFATE (325 MG) 325 MG/TAB TABLET GT SCH ×2 (08:22→16:47)
[2016-09-01] MEDS: APIXABAN 2.5 MG TABLET GT SCH ×2 (08:24→16:47)
[2016-09-01] MEDS: HYDROGEL DRESSING 90 GM TUBE TP SCH (08:25)
[2016-09-01 11:08] LABS: BASOPHILS % (AUTO) 0.7 % (0.0-2.0); EOSINOPHILS # (AUTO) 0.3 /CMM (0.0-0.7); EOSINOPHILS % (AUTO) 5.8 % (0.0-6.0); HEMATOCRIT 26 % (39-51); HEMOGLOBIN 8.5 g/dL (13.5-17.5); LYMPHOCYTES # (AUTO) 1.1 /CMM (0.8-4.8); LYMPHOCYTES % (AUTO) 19.5 % (20.0-44.0); MEAN CORPUSCULAR HEMOGLOBIN 31 PG (26.0-33.0); MEAN CORPUSCULAR HGB CONC 33 g/dl (31.0-36.0); MEAN CORPUSCULAR VOLUME 95 fL (80-96); MONOCYTES # (AUTO) 0.2 /CMM (0.1-1.30); MONOCYTES % (AUTO) 3.7 % (2.0-12.0); NEUTROPHILS # (AUTO) 3.8 /CMM (1.8-8.9); NEUTROPHILS % (AUTO) 70.3 % (43.0-81.0); PLATELET COUNT (AUTO) 263 /CMM (150-450); RDW COEFFICIENT OF VARIATION 21.4 (11.5-15.0); RED BLOOD CELL COUNT(AUTO) 2.72 MIL/uL (4.5-6.0); WHITE BLOOD COUNT (AUTO) 5.5 K/uL (4.3-11.0)
[2016-09-01 11:24] LABS: ALBUMIN 2.8 g/dL (3.4-5.0); BILIRUBIN,TOTAL 0.9 mg/dL (0.2-1.0); CALCIUM, SERUM 7.9 mg/dL (8.5-10.1); CREATININE 3.1 mg/dL (0.6-1.3); PHOSPHORUS 1.6 mg/dL (2.5-4.9); POTASSIUM 4.5 mmol/L (3.5-5.1); TOTAL PROTEIN, SERUM 5.9 g/dL (6.4-8.2)
--- NOTE | 2016-09-01 11:50 | NUR ---
KATHE NOTES RT PLEURX DRAINED= 1000 ML OUT ; DARK YELLOW COLORED Addendum: 09/01/16 at 1200 by WONG SANTILLAN RN PROCEDURE TOLERATED WELL BY THE PT. NO REDNESS OR SWELLING NOTED FROM DRAIN SITE; PT DENIES PAIN AND DISCOMFORT. DRESSING DONE
[2016-09-01 13:10] LABS: ABG BASE EXCESS 3.9 mmol/L; ABG OXYGEN SATURATION 97.6 % (92.0-98.5); ABG PCO2 43.8 mmHg (35.0-45.0); ABG PH 7.433 (7.350-7.450); ABG PO2 105.6 mmHg (75.0-100.0); AaDO2 100.3 mmHg; COHb 1.8 % (0.5-1.5); MetHb 0.4 % (0.0-1.5); O2Hb 95.5 % (94.0-97.0); SITE, ABG Right Radial; VENT MODE, BG NASAL CANNULA
--- NOTE | 2016-09-01 13:10 | NUR ---
RT NOTE: WAS NOT AWARE OF NEW ABG ORDER. DONE AT THIS TIME AND NOTIFIED NURSE(WONG).
[2016-09-01] MEDS ORDERED: IV SET PRIMARY PUMP SET 1 EA INFUS.SET MC ONE (14:48)
[2016-09-01] MEDS ORDERED: SECONDARY IV SET 1 EA INFUS.SET MC ONE (14:50)
[2016-09-01 16:00] VITALS: BP 148/74
[2016-09-01] MEDS: ALBUMIN 25% 25 GM in PREMIX 1 EA IV PRN (16:48)
--- NOTE | 2016-09-01 18:14 | NUR ---
RN NOTES PT AWAKE AND ALERT WITH NO ACUTE DISTRESS. NO SIGNIFICANT CHANGE WITH ABG PER RT HELLEN; O2 TITRATED TO 2 LI/MIN VIA NC, TOLERATED WELL. RT PLEURX CATH IN PLACE WITH DRESSING INTACT; NO REDNESS, SWELLING NOTED; PT DENIES PAIN. RT GROIN ACCESS WITH INTACT DRESSING, RT CHEST CATH SECURED WITH INTACT AND CLEAN DRESSING. ASSISTED PT WITH REPOSITION CHANGES. ALL NEEDS ATTENDED. WILL ENDORSE TO NEXT SHIFT RN FOR CONITNUITY OF CARE IN STABLE CONDITION.
--- NOTE | 2016-09-01 19:25 | NUR ---
RN NOTES RECEIVED PT IN BED, A/O X 3, VERBALLY RESPONSIVE. NO DISTRESS, NO SOB NOTED. RT CHEST WALL HD ACCESS IN PLACE WITH CLEAN DRY DRESSING. GT REMAINS CLAMPED. DENIES ANY PAIN OR DISCOMFORT AT THIS TIME. SAFETY PRECAUTIONS OBSERVED. RIGHT FEMORAL TRIPLE LUMEN CATHETER IN PLACE, WITH GOOD VENOUS RETURN. ALL NEEDS ATTENDED. WILL CONTINUE TO MONITOR.
[2016-09-01 20:00] VITALS: BP 155/81
[2016-09-01] MEDS: SERTRALINE HCL 50 MG TABLET PO SCH (21:41)
--- NOTE | 2016-09-01 22:00 | NUR ---
PT IN BED , RESTING COMFORTABLY AT THIS TIME. AROUSES EASILY. NO DISTRESS AT THIS TIME. ALL NEEDS ATTENDED. WILL CONTINUE TO MONITOR.
[2016-09-02] VITALS: BP 155/81
[2016-09-02] MEDS: BLOOD SUGAR DIAGNOSTIC 1 EACH STRIP IN SCH ×2 (00:24→05:47)
[2016-09-02] MEDS: IPRATROPIUM NEB FS 0.5 MG/2.5 ML AMPUL.NEB NEB SCH (01:14)
[2016-09-02] MEDS: ALBUTEROL HALF STRENGTH 1.25 MG/3 ML VIAL.NEB NEB SCH (01:14)
--- NOTE | 2016-09-02 03:18 | NUR ---
PT REFUSED DIAPER CHANGE X3 BY QUIQUE DE LA CRUZ RISK AND BENEFITS EXPLAINED, PT STILL REFUSED. WILL TRY AGAIN
[2016-09-02 04:00] VITALS: BP 139/79
--- NOTE | 2016-09-02 05:47 | NUR ---
CHECKED PATIENT'S BS THIS TIME : PT VERBALLY RESPONSIVE, STILL REQUESTING FOR APPLE JUICE BUT PT IS ON PUREED DIET.
--- NOTE | 2016-09-02 05:50 | NUR ---
CALLED DR. LONG FOR POSSIBLE SEIZURE. .
--- NOTE | 2016-09-02 05:58 | NUR ---
[facility]TT CALLED, PT BECAME PALE, COLD AND DIAPHORETIC .
--- NOTE | 2016-09-02 06:04 | NUR ---
PT BECAME PULSELESS AND APNEIC. HOTEL SERVICE SUPERVISOR ANURSE AT BEDSIDE ASSESSING PT. AWARE PT IS DNR.
--- NOTE | 2016-09-02 06:07 | NUR ---
ICU/RN PT TESSIE DNR DNI.PT W/ ABSENT RESPIRATIONS,PULSELESS.NO AUDIBLE HEART TONES.PUPILS FIXED AND DILATED.PRONOUNCED .
--- NOTE | 2016-09-02 06:07 | NUR ---
PT , DR. ETHAN MELENDEZ.
--- NOTE | 2016-09-02 06:07 | NUR ---
DETERMINED BY ARABIC LINGUIST KATHE WOLFE
--- NOTE | 2016-09-02 06:10 | NUR ---
CALLED REFRIGERATION INSTALLER'S CASE- CASE REJECTED.
--- NOTE | 2016-09-02 06:12 | NUR ---
PATIENT'S DAUGHTER, MAGNOLIA COLLADO INFORMED THAT PT . PER DAUGHTER THEY WILL BE HERE SOON.
--- NOTE | 2016-09-02 06:14 | NUR ---
POST MORTEM CARE DONE , CHARGE NURSE KRISTEN AT BEDSIDE.
--- NOTE | 2016-09-02 06:27 | NUR ---
[facility] CALLED - CASE # [id number]
--- NOTE | 2016-09-02 07:21 | NUR ---
RECEIVED A CALL FROM [facility] , SPOKE WITH PATRICIA MCKENO, INSTRUCTED TO APPLY NS DROPS TO BOTH EYES, CLOSE WITH GAUZE, ICE PACK OVER THE EYES. PT MIGHT BE A CANDIDATE FOR DONATION. WILL ENDORSE INSTRUCTION TO NEXT SHIFT.
--- NOTE | 2016-09-02 07:53 | NUR ---
FAMILY AT BEDSIDE AT THIS TIME, ENDORSED PT ACCORDINGLY TO CHARGE NURSE SOON.
[2016-09-02 07:55] VITALS: BP 90/49
--- NOTE | 2016-09-02 10:29 | NUR ---
VASYL received a call from [facility] KATHE Weaver stating that family is requesting a digital artist bedside, since pt. this morning. VASYL contacted [facility] and no linen keeper is available at this time, [facility] , no linen keeper is available, [facility] and spoke to Melisa who informed VASYL that a linen keeper is available and will be on his way to the hospital. VASYL contacted KATHE Weaver and informed her a linen keeper is on his way.
--- NOTE | 2016-09-02 11:00 | NUR ---
RN NOTE WELDER APPRENTICE COMBINATION AT BED SIDE.
--- NOTE | 2016-09-02 11:15 | NUR ---
RN NOTE ASKED PT'S FAMILY TO LET THE NURSING LOADER MACHINE ABOUT MORTUARY ARRANGEMENT, PROVIDED PHONE NUMBER, FAMILY MEMBER VERBALIZED UNDERSTANDING, AND STATED THAT THEY ARE CALLING [employer] AND WORKING ON IT.
--- NOTE | 2016-09-02 11:30 | NUR ---
RN NOTE TRANSF[place] [facility] [place] [facility]. ALL TAGS ATTACHED, ID BAND ON RIGHT WRIST ATTACHED.
== END 2016-09-02 06:00 | disposition expired | DRG 166 ==
LOC: ER 23:42 → EDBD 23:42 → TELE 08-28 01:26 → MED 08-28 09:49 → TELE-TD 08-28 20:33 → TELE1 08-31 09:57 → MEDSG1 09-01 09:50
PROVIDERS: ADMIT Internal Medicine; ATTEND Internal Medicine
PROC: 5A09357 Assistance with Respiratory Ventilation, Less than 24 Consecutive Hours, Continuous Positive Airway Pressure (ICD-10-PCS; 2016-08-28)
PROC: 5A1D60Z (ICD-10-PCS; 2016-08-28)
PROC: 0JB70ZZ Excision of Back Subcutaneous Tissue and Fascia, Open Approach (ICD-10-PCS; principal; 2016-08-30)
PROC: 0JBN0ZZ Excision of Right Lower Leg Subcutaneous Tissue and Fascia, Open Approach (ICD-10-PCS; 2016-08-30)
PROC: 0W9B3ZZ Drainage of Left Pleural Cavity, Percutaneous Approach (ICD-10-PCS; 2016-09-01)
DX: J96.01 Acute respiratory failure with hypoxia (principal); G93.41 Metabolic encephalopathy; L89.153 Pressure ulcer of sacral region, stage 3; N18.6 End stage renal disease; I50.33 Acute on chronic diastolic (congestive) heart failure; L89.624 Pressure ulcer of left heel, stage 4; L89.613 Pressure ulcer of right heel, stage 3; I13.2 Hypertensive heart and chronic kidney disease with heart failure and with stage 5 chronic kidney disease, or end stage renal disease; L97.919 Non-pressure chronic ulcer of unspecified part of right lower leg with unspecified severity; E44.0 Moderate protein-calorie malnutrition; N17.9 Acute kidney failure, unspecified; E87.1 Hypo-osmolality and hyponatremia; E87.2 Acidosis; J44.1 Chronic obstructive pulmonary disease with (acute) exacerbation; J90 Pleural effusion, not elsewhere classified; Z68.1 Body mass index [BMI] 19.9 or less, adult; S21.101A Unspecified open wound of right front wall of thorax without penetration into thoracic cavity, initial encounter; L97.219 Non-pressure chronic ulcer of right calf with unspecified severity; L97.819 Non-pressure chronic ulcer of other part of right lower leg with unspecified severity; R64 Cachexia; J98.11 Atelectasis; J96.02 Acute respiratory failure with hypercapnia; E11.65 Type 2 diabetes mellitus with hyperglycemia; E11.622 Type 2 diabetes mellitus with other skin ulcer; E11.22 Type 2 diabetes mellitus with diabetic chronic kidney disease; L89.309 Pressure ulcer of unspecified buttock, unspecified stage; E11.51 Type 2 diabetes mellitus with diabetic peripheral angiopathy without gangrene; D63.8 Anemia in other chronic diseases classified elsewhere; E03.9 Hypothyroidism, unspecified; F32.9 Major depressive disorder, single episode, unspecified; Z87.891 Personal history of nicotine dependence; Z89.612 Acquired absence of left leg above knee; Z99.2 Dependence on renal dialysis; Z99.81 Dependence on supplemental oxygen; K76.0 Fatty (change of) liver, not elsewhere classified; R74.0 Nonspecific elevation of levels of transaminase and lactic acid dehydrogenase [LDH]; I95.9 Hypotension, unspecified; D63.1 Anemia in chronic kidney disease; E88.09 Other disorders of plasma-protein metabolism, not elsewhere classified; Z93.1 Gastrostomy status; S81.001A Unspecified open wound, right knee, initial encounter; X58.XXXA Exposure to other specified factors, initial encounter; Y93.9 Activity, unspecified; Y92.129 Unspecified place in nursing home as the place of occurrence of the external cause; I70.232 Atherosclerosis of native arteries of right leg with ulceration of calf; I70.238 Atherosclerosis of native arteries of right leg with ulceration of other part of lower leg; I87.2 Venous insufficiency (chronic) (peripheral); L98.8 Other specified disorders of the skin and subcutaneous tissue; T14.8 Other injury of unspecified body region; Z66 Do not resuscitate; R13.10 Dysphagia, unspecified
CPT/HCPCS: 36415; 36600; 70220-TC; 71010-TC; 80048-TC; 80053-TC; 80076-TC; 82962-TC; 83605-TC; 83735-TC; 83880; 84100-TC; 84484-TC; 85025-TC; 85730-TC; 87040-TC; 87081-TC; 90935-TC; 92611-TC; 93307-TC; 93925-TC; 94762-TC; 94799-TC; 97001-TC; A4216; A4606; A6248; A6402; A6403; J0885; J1815; J1940; J1956; J2405; J3490; J7030; P9047; Z7610